=== PATIENT | female | born 1980 | race Two or more races ===

== ENCOUNTER 2025-03-06 08:43 | Inpatient (IN) | payer MEDICAID, SELFPAY ==
[2025-03-06] VITALS (12 sets, daily range): BP systolic 100–151; BP diastolic 48–78; PULSE 104–130; RESP 18–24; TEMP 36.8–39.4; O2SAT 95–100; BMI 44.6; BMI 46.7
--- NOTE | 2025-03-06 08:53 | XR_ITS ---
Examination: PA lateral chest 2 views TECHNIQUE: Upright PA lateral chest 2 views Date and time: March 06, 2025 1007 hours Comparison January 28, 2016 INDICATIONS: Coughing fever nausea and headaches body chills 2 days FINDINGS: Suspicious for early right base pneumonia Mild prominence left ventricle Mild vascular congestion. Osseous structures are intact IMPRESSION: Suspicious for early right base pneumonia
--- NOTE | 2025-03-06 09:20 | PD.EDFEVER ---
ED Fever RME/HPI General Chief Complaint: Fever Stated Complaint: FEVER, NAUSEA, HEADACHE, BODY CHILLS Time Seen by Provider: 03/06/25 08:57 Source: patient Arrival date/time: 03/06/25 08:43 44-year-old female with no known medical history presents to the emergency room with a chief complaint of a fever, nausea, headache, body aches x 3 days Mode of arrival: ambulatory Limitations: no limitations Related Data Previous Rx's ?Medication ?Instructions ?Recorded ibuprofen 600 mg tablet 600 mg PO Q8HR PRN PAIN #30 tabs 02/05/16 Allergies Allergy/AdvReac Type Severity Reaction Status Date / Time NKA* Allergy Uncoded 03/06/25 08:48 Review of Systems Review of Systems Systems Reviewed: All systems reviewed, normal except as documented Constitutional Constitutional: Reports system reviewed and no additional complaints, except as documented, Reports body ache(s), Reports chills, Denies fatigue, Reports fever(s), Reports headache(s) and Reports weakness Eyes Eyes: Reports system reviewed and no additional complaints, except as documented, Denies blurry vision and Denies change in vision ENT Ears, Nose, Mouth, and Throat: Reports system reviewed and no additional complaints, except as documented, Denies otalgia, Reports headache(s), Denies nasal congestion, Denies throat swelling and Denies vertigo Cardiovascular Cardiovascular: Reports system reviewed and no additional complaints, except as documented, Denies chest pain, Denies dyspnea and Denies dyspnea on exertion Respiratory Respiratory: Reports system reviewed and no additional complaints, except as documented, Denies chest congestion, Denies cough, Denies dyspnea, Denies dyspnea on exertion and Denies wheezing Gastrointestinal Gastrointestinal: Reports system reviewed and no additional complaints, except as documented, Denies abdominal pain, Denies cramping, Denies nausea and Denies vomiting Genitourinary Genitourinary: Reports system reviewed and no additional complaints, except as documented Musculoskeletal Musculoskeletal: Reports system reviewed and no additional complaints, except as documented and Denies back pain Integumentary/Breasts Skin/Breast: Reports system reviewed and no additional complaints, except as documented and Denies wounds Neurologic Neurologic: Reports system reviewed and no additional complaints, except as documented, Denies confusion, Reports headache(s), Denies lack of coordination, Denies vertigo and Reports weakness Psychiatric Psychiatric: Reports system reviewed and no additional complaints, except as documented, Denies anxiety, Denies confusion, Denies depression, Denies paranoia, Denies suicidal ideation and Denies tactile hallucinations Endocrine Endocrine: Reports system reviewed and no additional complaints, except as documented and Denies fatigue Hematologic/Lymphatic Hematologic/Lymphatic: Reports system reviewed and no additional complaints, except as documented and Denies lymphadenopathy Allergic/Immunologic Allergic/Immunologic: Reports system reviewed and no additional complaints, except as documented, Denies throat swelling, Denies urticaria and Denies wheezing Past Medical History Past Medical History CARDIAC: Negative Congestive Heart Failure RESPIRATORY: Negative Chronic Obstructive Pulmonary Disease (COPD) GENITOURINARY: Negative Renal Disease MUSCULOSKELETAL: Positive Arthritis ENDOCRINE: Negative Diabetes Mellitus Type 1 or Diabetes Mellitus Type 2 Social History SMOKING STATUS: Never smoker Physical Exam General Limitations: no limitations General appearance: alert and in no apparent distress Head Head exam: atraumatic Eye Eye exam: Present normal appearance, PERRL and EOMI ENT ENT exam: Present normal exam, normal oropharynx and mucous membranes moist Neck Neck exam: Present normal inspection, full ROM and trachea midline Chest Chest inspection: Present normal inspection and symmetric chest wall rise Respiratory Respiratory exam: Present normal lung sounds bilaterally; Absent respiratory distress, wheezes, stridor, accessory muscle use or prolonged expiratory phase Cardiovascular Cardiovascular exam: Present regular rate, normal rhythm, tachycardia, normal heart sounds, +S1 and +S2 Abdominal Exam Abdominal exam: Present soft and normal bowel sounds; Absent distention, tenderness or guarding Extremities Exam Extremities exam: Present normal inspection and full ROM Back Exam Back exam: Present normal inspection and full ROM Neurological Exam Neurological exam: Present alert, oriented X3 and CN II-XII intact Psychiatric Psychiatric exam: Present normal affect and normal mood Skin Skin exam: Present warm, dry, intact and normal color ED Exam General Limitations: Present no limitations General appearance: Present alert and in no apparent distress Head Head exam: Present atraumatic Eye Eye exam: Present normal appearance, PERRL and EOMI ENT ENT exam: Present normal exam, normal oropharynx and mucous membranes moist Neck Neck exam: Present normal inspection, full ROM and trachea midline Chest Chest inspection: Present normal inspection and symmetric chest wall rise Respiratory Respiratory exam: Present normal lung sounds bilaterally; Absent respiratory distress, wheezes, stridor, accessory muscle use or prolonged expiratory phase Cardiovascular Cardiovascular exam: Present regular rate, normal rhythm, tachycardia, normal heart sounds, +S1 and +S2 Abdominal Exam Abdominal exam: Present soft and normal bowel sounds; Absent distention, tenderness or guarding Extremities Exam Extremities exam: Present normal inspection and full ROM Back Exam Back exam: Present normal inspection and full ROM Neurological Exam Neurological exam: Present alert, oriented X3 and CN II-XII intact Psychiatric Psychiatric exam: Present normal affect and normal mood Skin Skin exam: Present warm, dry, intact and normal color Course Orders Category Date Time Status Bedside COVID-19 Antigen Test NOW Care 03/06/25 08:53 Active Bedside Influenza A&B Antigen Test NOW Care 03/06/25 08:53 Active XR chest 2V Stat Exams 03/06/25 08:53 Taken Blood Culture (Lab) Stat Lab 03/06/25 08:58 Ordered CBC Stat Lab 03/06/25 08:58 Ordered CMP [Comprehensive Metabolic Panel] Stat Lab 03/06/25 08:58 Ordered Lactate (Lactic Acid) Stat Lab 03/06/25 08:58 Ordered Procalcitonin Stat Lab 03/06/25 08:58 Ordered UA [Urinalysis] Stat Lab 03/06/25 08:58 Ordered Urine Culture Stat Lab 03/06/25 08:58 Ordered Acetaminophen Tab [Tylenol ES Tab] Med 03/06/25 08:58 Discontinued 1,000 mg PO X1 ONE Ibuprofen Tab [Motrin Tab] Med 03/06/25 08:58 Discontinued 600 mg PO X1 ONE Vital Signs Vital signs: Vital Signs Temperature 103.0 F H 03/06/25 08:55 Pulse Rate 130 H 03/06/25 08:55 Respiratory Rate 24 H 03/06/25 08:55 Blood Pressure 136/73 H 03/06/25 08:55 Pulse Oximetry (%) 96 03/06/25 08:55 Oxygen Delivery Method Room Air 03/06/25 08:55 Fever MDM Narrative MDM Narrative:: 44-year-old female with no known medical history presents to the emergency room with a chief complaint of a fever, nausea, headache, body aches x 3 days Patient data External records reviewed:: [facility] previous records Clinical information provided by:: patient Social determinants that could affect healthcare access:: none Patient has the following chronic illnesses:: No chronic illness How is presenting disease/condition affected by chronic disease/condition?: no chronic disease Evaluation data The following diagnostics were reviewed and interpreted by me:: lab results and radiology exam(s) Lab and/or radiology exams considered but not ordered:: Labs and radiology exams considered in order Interpretation Summary: Chest x-ray- Medications / Prescriptions Medications or Prescriptions considered but not ordered:: Medication given Medication administrations:: Medication Administration History Discontinued Medications Acetaminophen (Acetaminophen 500 Mg Tablet) 1,000 mg PO X1 ONE Stop: 03/06/25 08:59 Ibuprofen (Ibuprofen Tab 600 Mg Tablet) 600 mg PO X1 ONE Stop: 03/06/25 08:59 Medication given Consultations Consultation(s) initiated? (list below): No Diagnosis Fever Differential Diagnosis: cellulitis, fever of unknown origin, community acquired pneumonia, viral infection and influenza Admission Indicated Admission indicated?: not indicated Admission Request Was there a request for admission?: No Disposition Plan Disposition Plan: Discharge Discharge Attestation Discharge Attestation: The patient and all family members were given an opportunity to ask questions and understood the discharge instructions. Discharge instructions specifically effects, indications for sooner follow up or return to the emergency department, and the expected course of current diagnosis. Patient condition: Stable Discharge Plan Prescriptions/Referrals Prescriptions/Med Rec: No Action ibuprofen 600 MG tablet 600 mg PO Q8HR PRN (Reason: PAIN) Qty: 30 0RF Referrals: Harry Gonzalez MD [Primary Care Provider] - In 1 week Patient/Caregiver Discharge Instructions Print Language: Greenlandic
[2025-03-06] MEDS: IBUPROFEN TAB 600 MG TABLET PO (09:27)
[2025-03-06] MEDS: ACETAMINOPHEN 500 MG TABLET 1000 MG PO ×2 (09:27→15:12)
[2025-03-06 10:02] LABS: Lactate (Lactic Acid) 2.5 mMol/L (0.4-2.0)
[2025-03-06 10:04] LABS: Basophils # (Auto) 0.1 Thou/mm3 (0.0-0.2); Basophils % (Auto) 0 % (0-2.5); Eosinophils % (Auto) 0 % (0-10); Hematocrit 29.6 % (36.0-46.0); Immature Granulocytes % (Auto) 1 % (0-0); Immature Granulocytes Auto 0.09 Thou/mm3 (0.00-0.00); Lymphocytes # (Auto) 2.7 Thou/mm3 (1.0-4.8); Lymphocytes % (Auto) 14 % (10-50); Mean Corpuscular HGB Conc 27.7 g/dl (31.0-37.0); Mean Corpuscular Hemoglobin 16.7 pg (25.0-35.0); Mean Corpuscular Volume 60 fL (80-100); Monocytes # (Auto) 0.8 Thou/mm3 (0.0-0.8); Monocytes % (Auto) 4 % (0-12); Neutrophils # (Auto) 16.1 Thou/mm3 (1.8-7.7); Neutrophils % (Auto) 81 % (37-80); Nucleated Red Blood Cell # 0.05 Thou/mm3 (0.00-0.00); Nucleated Red Blood Cell % 0 /100 WBC (0); Platelet Count 412 Thou/mm3 (140-440); RDW Standard Deviation 41.3 fL (36.4-46.3); White Blood Count 19.8 Thou/mm3 (3.6-11.0)
[2025-03-06 10:15] LABS: COVID-19 Antigen (In-House) Negative (Negative)
--- NOTE | 2025-03-06 10:15 | PD.EDRME ---
Rapid Medical Screening Exam RME Arrival date/time: 03/06/25 08:43 44-year-old female with no known medical history presents to the emergency room with a chief complaint of a fever, nausea, headache, body aches x 3 days I have greeted and performed a focused initial assessment of this patient. A comprehensive ED assessment and evaluation of the patient, analysis of all test results, and completion of the medical decision making process will be conducted by additional ED providers. Chief Complaint: Fever Time Seen by Provider: 03/06/25 08:57 Vital signs: Vital Signs Temperature 103.0 F H 03/06/25 08:55 Pulse Rate 130 H 03/06/25 08:55 Respiratory Rate 24 H 03/06/25 08:55 Blood Pressure 136/73 H 03/06/25 08:55 Pulse Oximetry (%) 96 03/06/25 08:55 Oxygen Delivery Method Room Air 03/06/25 08:55 Vital signs reviewed by provider: Yes
[2025-03-06 10:19] LABS: Hemoglobin 8.2 g/dL (12.0-16.0)
[2025-03-06 10:35] LABS: Alanine Aminotransferase 25 U/L (10-49); Albumin, Serum 4.3 gm/dL (3.5-5.0); Albumin/Globulin Ratio 1.4 (1.2-2.2); Alkaline Phosphatase 95 U/L (46-116); Anion Gap 13 (7-16); Aspartate Amino Transferase 29 U/L (0-34); BUN/Creatinine Ratio 17 Ratio (12-20); Bilirubin,Total 1.8 mg/dL (0.3-1.2); Blood Urea Nitrogen 10 mg/dL (9-23); Calcium 8.5 mg/dL (8.3-10.6); Calcium (Corrected) 8.5 mg/dL (8.5-10.1); Carbon Dioxide 23.3 mMol/L (20.0-31.0); Chloride 100 mMol/L (98-107); Creatinine (Component) 0.6 mg/dL (0.6-1.3); Globulin 3.1 gm/dL (2.3-3.5); Glucose 167 mg/dL (74-106); Osmolality,Calculated 274 (275-295); Potassium 3.7 mMol/L (3.4-5.1); Procalcitonin 0.35 ng/ml (0.0-0.49); Sodium 136 mMol/L (136-145); Total Protein 7.4 gm/dL (5.7-8.2); eGFR > 60 See Note
[2025-03-06] MEDS: SODIUM CHLORIDE 0.9% 1000 ML 1,000 ML 999 ML IV ×2 (11:28→14:09)
--- NOTE | 2025-03-06 11:29 | XR_ITS ---
Examination: Abdomen sonogram, Limited Date and time of exam: March 06, 2025 1113 hours INDICATIONS: Right upper abdominal pain nausea vomiting beginning 2 days ago Technique: Real-time villalta scale transabdominal sonographic images of the upper abdomen obtained. Findings: Absent gallbladder Normal common bile duct 0.5 cm Pancreatic head 2.4 cm Liver 21.6 cm fatty infiltration Normal hepatopedal portal venous flow Patent IVC IMPRESSION: Absent gallbladder Normal common bile duct Hepatomegaly with fatty liver
--- NOTE | 2025-03-06 11:32 | EKG_ITS ---
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
--- NOTE | 2025-03-06 11:33 | EDNOTE_ITS ---
<Statement entered by Urmila Crow MD - 03/07/25 06:13> I, Urmila Crow MD, have reviewed the history, exam, and assessment of the patient. I have evaluated the patient independently and agree with the plan of care documented by [ ]. All diagnostic studies were reviewed and discussed. I confirm the diagnosis as documented by the Resident. I was present during the Medical Decision Making for this patient. The patient's plan of care was created between myself and the Resident and consistent with our discussion of the patient's case. ED Fever RME/HPI General Chief Complaint: Fever Stated Complaint: FEVER, NAUSEA, HEADACHE, BODY CHILLS Time Seen by Provider: 03/06/25 08:57 Arrival date/time: 03/06/25 08:43 RME / HPI RME / HPI Narrative: 03/06/25 08:43 The patient is a 44-year-old female with significant past medical history of anemia, with unknown etiology presented to ED with chief complaint of fever, nausea and vomiting that has been worsening for about 3 days. The patient reported that her temperature was up to 102, had 2 episodes of vomiting without any blood, and has been having urinary symptoms with burning micturition, dysuria and frequency. She also reported associated mild SOB, more on exertion. She denied any headache, sore throat, chest pain, or leg swelling. Related Data Previous Rx's ?Medication ?Instructions ?Recorded ibuprofen 600 mg tablet 600 mg PO Q8HR PRN PAIN #30 tabs 02/05/16 Allergies Allergy/AdvReac Type Severity Reaction Status Date / Time NKA* Allergy Uncoded 03/06/25 08:48 Review of Systems Review of Systems Systems Reviewed: All systems reviewed, normal except as documented (Above) Past Medical History Social History SMOKING STATUS: Never smoker Physical Exam Narrative Physical exam: General: Morbidly obese female, no acute distress, Alert and Oriented x 3 HEENT: Mildly dry mucous membranes, oropharynx clear Neck: Supple, No masses, No JVD CVS: Tachycardic, No murmurs, rubs or gallops Lungs: Clear to auscultation with no accessory use, no wheeze no rhonchi Abd: Soft, tenderness over right upper quadrant, but diffuse tenderness also present, +BS, no organomegaly Ext: No edema, warm and well perfused Skin: No rash Psych: Appropriate mood and affect Course Quality Measures none Orders Category Date Time Status Bedside COVID-19 Antigen Test NOW Care 03/06/25 08:53 Active Bedside Influenza A&B Antigen Test NOW Care 03/06/25 08:53 Completed EKG (ED ONLY) *Do not use* NOW Care 03/06/25 11:[address] abdomen pelvis wo con Stat Exams 03/06/25 13:06 Completed EKG (ED Only) Stat Exams 03/06/25 11:32 Draft US gall bladder Stat Exams 03/06/25 11:29 Completed XR chest 2V Stat Exams 03/06/25 08:53 Completed Blood Culture (Lab) Stat Lab 03/06/25 09:55 Received CBC Stat Lab 03/06/25 09:55 Completed CMP [Comprehensive Metabolic Panel] Stat Lab 03/06/25 09:55 Completed COVID-19 Antigen (In-House) Routine Lab 03/06/25 12:00 Completed COVID-19 Antigen (In-House) Stat Lab 03/06/25 09:51 Completed HCG,Qualitative Serum Stat Lab 03/06/25 13:39 Completed Lactate (Lactic Acid) Stat Lab 03/06/25 09:55 Completed Lactic Acid, 3 HR Stat Lab 03/06/25 13:39 Completed Procalcitonin Stat Lab 03/06/25 09:55 Completed UA [Urinalysis] Stat Lab 03/06/25 15:00 Completed Urine Culture Stat Lab 03/06/25 15:00 Received Acetaminophen Tab [Tylenol ES Tab] Med 03/06/25 08:58 Discontinued 1,000 mg PO X1 ONE Acetaminophen Tab [Tylenol ES Tab] Med 03/06/25 15:02 Discontinued 1,000 mg PO X1 ONE Azithromycin Inj [Zithromax Inj] 500 mg Med 03/06/25 11:31 Discontinued Sodium Chloride 0.9% 250 ml [Ns] 250 ml IV X1 Ibuprofen Tab [Motrin Tab] Med 03/06/25 08:58 Discontinued 600 mg PO X1 ONE Piper/Tazo Inj [Zosyn Inj] 4.5 gm Med 03/06/25 11:30 Discontinued Sodium Chloride 0.9% (Pop) [NS 0.9% mini bag] 100 ml IV X1 Sodium Chloride 0.9% 1000 ml [Ns] 1,000 ml Med 03/06/25 10:15 Discontinued IV 999 mls/hr Sodium Chloride 0.9% 1000 ml [Ns] 1,000 ml Med 03/06/25 13:35 Discontinued IV 999 mls/hr cefTRIAXone/D5w 1gm IV premix [Rocephin/D5w 1gm IV Med 03/06/25 10:15 Discontinued premix] 1 gm in 50 ml IV X1 Vital Signs Vital signs: Vital Signs Temperature 103.0 F H 03/06/25 08:55 Pulse Rate 130 H 03/06/25 08:55 Respiratory Rate 24 H 03/06/25 08:55 Blood Pressure 136/73 H 03/06/25 08:55 Pulse Oximetry (%) 96 03/06/25 08:55 Oxygen Delivery Method Room Air 03/06/25 08:55 Fever MDM Narrative MDM Narrative:: The patient is a 44-year-old female with significant past medical history of anemia, with unknown etiology presented to ED with chief complaint of fever, nausea and vomiting that has been worsening for about 3 days. The patient reported that her temperature was up to 102, had 2 episodes of vomiting without any blood, and has been having urinary symptoms with burning micturition, dysuria and frequency. She also reported associated mild SOB, more on exertion. She denied any headache, sore throat, chest pain, or leg swelling. Initial vitals were blood pressure 136/73, pulse 140, RR 24, temperature 103.0, saturating 96% on room air. Labs revealed white count 19.8, hemoglobin 8.2, MCV 60, CMP revealed blood sugar 167, lactic acid 2.5, total bilirubin 1.8, Pro-Jordon 0.35, beta-hCG negative, COVID-19 negative, EKG revealed sinus tachycardia. Gallbladder ultrasound revealed Absent gallbladder, normal common bile duct, hepatomegaly with fatty liver. CXR was suspicious for early right base p neumonia. The patient was given Zosyn 4.5 g and azithromycin 500 Mg IV x 1, bolus normal saline 2 L IV x 1, Tylenol 1 g p.o. x 2. The patient was planned to admit to the floors. Patient data External records reviewed:: [facility] previous records Clinical information provided by:: patient Social determinants that could affect healthcare access:: none Patient has the following chronic illnesses:: See above How is presenting disease/condition affected by chronic disease/condition?: exacerbated by Evaluation data The following diagnostics were reviewed and interpreted by me:: lab results, radiology exam(s) and EKG tracing(s) Lab and/or radiology exams considered but not ordered:: None Interpretation Summary: See above Medications / Prescriptions Medications or Prescriptions considered but not ordered:: None Medication administrations:: Medication Administration History Discontinued Medications Acetaminophen (Acetaminophen 500 Mg Tablet) 1,000 mg PO X1 ONE Stop: 03/06/25 08:59 Last Admin: 03/06/25 09:27 Dose: 1,000 mg Documented By: VALERIE Acetaminophen (Acetaminophen 500 Mg Tablet) 1,000 mg PO X1 ONE Stop: 03/06/25 15:03 Last Admin: 03/06/25 15:12 Dose: 1,000 mg Documented By: KHAI Sodium Chloride (Ns) 1,000 mls @ 999 mls/hr IV .Q1H1M ONE Stop: 03/06/25 11:15 Last Infusion: 03/06/25 13:36 Dose: Infused Documented By: Admin: 03/06/25 11:28 Dose: 999 mls/hr Documented By: KHAI Ceftriaxone Sodium/Dextrose (Rocephin/D5w 1gm Iv Premix) 1 gm in 50 mls @ 100 mls/hr IV X1 ONE Stop: 03/06/25 10:44 Last Admin: 03/06/25 11:33 Dose: Not Given Documented By: KHAI Non-Admin Reason: Cancelled by Provider Piperacillin Sod/Tazobactam (Sod 4.5 gm/ Sodium Chloride) 100 mls @ 200 mls/hr IV X1 ONE Stop: 03/06/25 11:59 Last Infusion: 03/06/25 13:35 Dose: Infused Documented By: Admin: 03/06/25 11:41 Dose: 200 mls/hr Documented By: KHAI Azithromycin 500 mg/ Sodium (Chloride) 250 mls @ 250 mls/hr IV X1 ONE Stop: 03/06/25 12:30 Last Infusion: 03/06/25 15:20 Dose: Infused Documented By: Admin: 03/06/25 14:09 Dose: 250 mls/hr Documented By: JEANETH Sodium Chloride (Ns) 1,000 mls @ 999 mls/hr IV .Q1H1M ONE Stop: 03/06/25 14:35 Last Infusion: 03/06/25 15:21 Dose: Infused Documented By: Admin: 03/06/25 14:09 Dose: 999 mls/hr Documented By: DB Ibuprofen (Ibuprofen Tab 600 Mg Tablet) 600 mg PO X1 ONE Stop: 03/06/25 08:59 Last Admin: 03/06/25 09:27 Dose: 600 mg Documented By: VALERIE See above Consultations Consultation(s) initiated? (list below): Yes Consultation #1 (Physician, Specialty, Details): Hospitalist Dr. Dilip DO Diagnosis Fever Differential Diagnosis: community acquired pneumonia and other (Sepsis 2/2 UTI vs Pneumonia) Most likely diagnosis given after review of the tests above:: Sepsis 2/2 Pneumonia vs UTI Admission Indicated Admission indicated?: indicated Admission Request Was there a request for admission?: Yes Admission Attestation Admission request attestation: Discussed case with Dr. Dilip DO from Hospitalist service regarding admission. Discussed patients ED course, exam findings, labs, and radiology results. The Hospitalist agrees to accept the patient for admission. Disposition Plan Disposition Plan: Admit Discharge Plan Plan Patient Disposition: Admit Acute Care w/in Hospital Prescriptions/Referrals Prescriptions/Med Rec: No Action ibuprofen 600 MG tablet 600 mg PO Q8HR PRN (Reason: PAIN) Qty: 30 0RF Referrals: Harry Gonzalez MD [Primary Care Provider] - In 1 week Problem List Clinical Impression: Sepsis, Community acquired pneumonia, UTI (urinary tract infection) Patient/Caregiver Discharge Instructions Print Language: Yi Stand Alone Forms: Lindy Award Info., Patient Portal Info Letter
[2025-03-06] MEDS: PIPER/TAZO INJ 4.5 GM in SODIUM CHLORIDE 0.9% (POP) 100 ML IV (11:41)
[2025-03-06 12:27] LABS: COVID-19 Antigen (In-House) Negative (Negative)
[2025-03-06 12:59] LABS: Reflex Lactate? Y
--- NOTE | 2025-03-06 13:06 | XR_ITS ---
Examination: CT abdomen and pelvis without contrast. Coronal 3-D reconstructions. Sagittal 2-D reconstructions. Date and time of exam:March 06, 2025 1555 hours INDICATIONS: Abdominal pain and tenderness CTDI: vol (mGy): 16.6 DLP: (mGycm): 991 Technique: Axial images of the abdomen have been obtained, 3 mm slice thickness Intravenous contrast material has not been administered. Low dose protocols were performed. One or more of the following dose reduction techniques were used; automated exposure control, adjustment of the mA and/or KV according to patient size, use of iterative reconstruction technique. Findings: Hepatomegaly 20 cm with diffuse fatty infiltration throughout the liver The liver is irregular in contour Splenomegaly AP dimension 15 cm Absent gallbladder Fatty replacement pancreas 3 mm lower pole left renal calculus 3 mm lower pole right renal calculus, no hydronephrosis or ureteral calculi Normal appendix No bowel obstruction No diverticulitis Anteverted uterus Urinary bladder intact Mild disc narrowing L4-L5, L5-S1 IMPRESSION: Significant hepatomegaly splenomegaly Fatty infiltration throughout the liver. Primary hepatocellular disease versus cirrhosis. Bilateral nonobstructing renal calculi Normal-appearing appendix No bowel obstruction or diverticulitis
[2025-03-06 13:50] LABS: Lactic Acid, 3 HR 1.7 mMol/L (0.4-2.0)
[2025-03-06] MEDS: AZITHROMYCIN INJ 500 MG in SODIUM CHLORIDE 0.9% 250 ML 250 ML 250 MG IV (14:09)
[2025-03-06 14:48] LABS: HCG,Qualitative Serum Negative
[2025-03-06 15:29] LABS: Collection Type, Urine Clean Catch
[2025-03-06 16:04] LABS: Bacteria,Urine Rare; Bilirubin,Urine Negative (Negative); Blood,Urine Negative (Negative); Clarity,Urine Clear (Clear/Hazy); Color,Urine Yellow (Lt Yel-Yel); Glucose, Urine Negative (Negative); Ketones,Urine 1+ (Negative); Leukocyte Esterase,Urine Positive (Negative); Nitrite,Urine Negative (Negative); Protein,Urine Trace (Neg - Trace); RBC,Urine 1 /hpf (0-3); Specific Gravity,Urine 1.026 (1.001-1.035); Squamous Epithelial Cell,Urine 10 /hpf (0-5); Urobilinogen,Urine Negative mg/dL (0.0-1.0); WBC,Urine 6 /hpf (0-5)
[2025-03-06] MEDS: RINGERS LACTATED 1000 ML 1,000 ML 999 ML IV (17:42)
--- NOTE | 2025-03-06 18:10 | ESHP_ITS ---
<Statement entered by Joby Ware MD - 03/07/25 09:47> Patient examined and case discussed with the team including attending physician. Note reviewed, I agree with the care plan as documented. Please refer to the note above for further details. - Joby Ware MD, PGY 2 Disclaimer: The document may contain phonetic/typographic errors due to voice recognition software. These errors are purely due to imperfections in the software program. Documentation for date of: 03/06/25 HPI History of Present Illness History of present illness: 44-year-old female with past medical history of anemia, cholecystectomy presenting to the ED on 03/06 with episode of vomiting and diarrhea. Patient states that she has been also having urinary symptoms on and off for about 1 month but she has not been seen by PCP. Patient states that she has burning sensation while urinating associated with fevers that have been on and off. Patient states no sick contacts, sexually active with her spouse without the use of protection, no recent travel and denies any tobacco, alcohol or illicit drug use. Patient denies any recent antibiotic use and denies any melena, hematochezia or hematemesis. She also denies having any changes to her diet or any current medical conditions being treated with prescription medication. Patient states that she did not see her PCP for symptoms because she believed her symptoms would improve; however, last night symptoms worsened and she developed weakness along with vomiting. Medical history: As stated above Surgical history: Cholecystectomy Allergies: NKDA Medications: Denies any prescription medication Family history: Denies any family history of hypertension or diabetes Social history: Patient lives at home with her and children. Works in the [employer]. Denies any alcohol, tobacco or illicit drug use ROS: All 12 systems distant patient denies unless otherwise stated in HPI In the ED, patient presented meeting SIRS criteria with tachycardia 130, respiratory rate of 24, febrile 103 ?F with mild hypertension 136/73 but satting 96 on room air. Pertinent lab findings include WBC of 19.8, hemoglobin 8.2 with MCV of 60, creatinine 0.6, BUN 10, T. bili 1.8, Pro-Jordon 0.35. Urinalysis shows +1 ketones, pyuria and rare bacteria. Chest x-ray shows suspicion for early right base pneumonia, gallbladder ultrasound shows hepatomegaly with fatty liver, EKG shows sinus tachycardia without any concerning ST changes and CTA abdomen pelvis shows hepatosplenomegaly, bilateral nonobstructing renal calculi. Patient will be admitted for observation for urinary tract infection and started on IV antibiotics. Exam Vital Signs Temp Pulse Resp BP Pulse Ox O2 Del Method 99.7 F 110 H 20 109/57 L 95 Room Air 03/06/25 17:48 03/06/25 16:49 03/06/25 16:49 03/06/25 16:49 03/06/25 16:49 03/06/25 16:49 Narrative Exam Physical Exam: GENERAL: Awake, answering questions appropriately in Latvian, appears stated age HEENT: NC/AT. Moist mucosa. PERRLA/EOMI. CARDIO: Heart RRR, no obvious murmurs, no JVD. PULM: No coughing or visible SOB. Lungs CTA B/L. GI: Abdomen soft, tender to palpation diffusely, nondistended, no guarding or rebound tenderness, +BS. SKIN/MSK/EXT: No wounds/discoloration/rashes/edema/amputations. +Pedal pulses present B/L. NEURO: Oriented x3, Moves extremities x4, no focal neurologic deficits noted Results: Labs 03/07/25 10:15 03/07/25 04:26 Labs: Short CBC 03/06/25 Range/Units 09:55 WBC 19.8 H (3.6-11.0) Thou/mm3 Hgb 8.2 L (12.0-16.0) g/dL Hct 29.6 L (36.0-46.0) % Plt Count 412 (140-440) Thou/mm3 BMP 03/06/25 09:55 Sodium 136 Potassium 3.7 Chloride 100 Carbon Dioxide 23.3 BUN 10 Creatinine 0.6 Glucose 167 H Calcium 8.5 Liver Function 03/06/25 Range/Units 09:55 Total Bilirubin 1.8 H (0.3-1.2) mg/dL AST 29 (0-34) U/L ALT 25 (10-49) U/L Alkaline Phosphatase 95 (46-116) U/L Albumin 4.3 (3.5-5.0) gm/dL Urine 03/06/25 Range/Units 15:00 Urine Color Yellow (Lt Yel-Yel) Urine Clarity Clear (Clear/Hazy) Urine pH 6.0 (5.0-7.0) Ur Specific [place] 1.026 (1.001-1.035) Urine Protein Trace (Neg - Trace) Urine Glucose (UA) Negative (Negative) Quality Measures Quality Measures none Medications Home Medications and Allergies Allergies Allergy/AdvReac Type Severity Reaction Status Date / Time No Known Allergies Allergy Unverified 03/06/25 18:19 Visit Medications Lactated Ringer's (Lactated Ringers) 1,000 mls @ 999 mls/hr IV .Q1H1M ONE Stop: 03/06/25 18:12 Last Admin: 03/06/25 17:42 Dose: 999 mls/hr Discontinued Medications Acetaminophen (Acetaminophen 500 Mg Tablet) 1,000 mg PO X1 ONE Stop: 03/06/25 08:59 Last Admin: 03/06/25 09:27 Dose: 1,000 mg Acetaminophen (Acetaminophen 500 Mg Tablet) 1,000 mg PO X1 ONE Stop: 03/06/25 15:03 Last Admin: 03/06/25 15:12 Dose: 1,000 mg Sodium Chloride (Ns) 1,000 mls @ 999 mls/hr IV .Q1H1M ONE Stop: 03/06/25 11:15 Last Infusion: 03/06/25 13:36 Dose: Infused Ceftriaxone Sodium/Dextrose (Rocephin/D5w 1gm Iv Premix) 1 gm in 50 mls @ 100 mls/hr IV X1 ONE Stop: 03/06/25 10:44 Last Admin: 03/06/25 11:33 Dose: Not Given Piperacillin Sod/Tazobactam (Sod 4.5 gm/ Sodium Chloride) 100 mls @ 200 mls/hr IV X1 ONE Stop: 03/06/25 11:59 Last Infusion: 03/06/25 13:35 Dose: Infused Azithromycin 500 mg/ Sodium (Chloride) 250 mls @ 250 mls/hr IV X1 ONE Stop: 03/06/25 12:30 Last Infusion: 03/06/25 15:20 Dose: Infused Sodium Chloride (Ns) 1,000 mls @ 999 mls/hr IV .Q1H1M ONE Stop: 03/06/25 14:35 Last Infusion: 03/06/25 15:21 Dose: Infused Ibuprofen (Ibuprofen Tab 600 Mg Tablet) 600 mg PO X1 ONE Stop: 03/06/25 08:59 Last Admin: 03/06/25 09:27 Dose: 600 mg Assessment & Plan Plan 44-year-old female with past medical history of anemia, cholecystectomy presenting to the ED on 03/06 with episode of vomiting and diarrhea will be admitted for observation for urinary tract infection and started on IV antibiotics. #Sepsis secondary to UTI #Pneumonia? #Leukocytosis #Diarrheal illness Patient presented to the ED with episodes of urinary symptoms, nausea/vomiting and diarrhea As per HPI above, patient has not been seen by a medical provider since urinary symptom onset about 1 month ago Patient experienced nausea/vomiting and diarrhea for 1 day but otherwise did not have those symptoms Denies using any antibiotics recently, sick contacts, sexual activity only with spouse without protection, no melena/hematochezia/hematemesis SIRS criteria with tachycardia 130, respiratory rate of 24, febrile 103 ?F with mild hypertension 136/73 but satting 96 on room air. Has elevated Tbili - end organ dysfunction Pertinent lab findings include WBC of 19.8, hemoglobin 8.2 with MCV of 60, creatinine 0.6, BUN 10, T. bili 1.8, Pro-Jordon 0.35. Urinalysis shows +1 ketones, pyuria and rare bacteria. Chest x-ray shows suspicion for early right base pneumonia In the ED given, IVF and IV Zosyn x1 Azithro x1 and tylenol Plan: IV ceftriaxone 1g qday Follow-up on cultures HIV, Chlamydia/Don/Trich screen Tylenol for fever Will monitor for diarrhea while in the hospital; and consider stool studies if present #Metabolic associated steatotic liver disease #Morbidly Obese #Elevated T. bili Gallbladder ultrasound shows hepatomegaly with fatty liver EKG shows sinus tachycardia without any concerning ST changes CTA abdomen pelvis shows hepatosplenomegaly, bilateral nonobstructing renal calculi. Likely secondary to obesity #Microcytic anemia #Likely iron deficiency anemia History of iron deficiency anemia; as seen from past smear Plan: Follow-up on AM iron panel and reticulocyte count Will consider d/c with iron supplements #Hyperglycemia No A1c on file On admission glucose 167 Morbidly obese Plan: SSI Follow-up on morning A1c and lipid panel Hospital Management: Lines: PIV Diet: Carb consistent Bowel: Senna as needed GI prophylaxis: Not needed DVT prophylaxis: Heparin subcu Dispo: Observation for sepsis from UTI, on IV antibiotics Code: Full Patient seen and examined with attending Dr. Oconnor and senior resident Dr. Jeanie Cherry, PGY-1 Attending Provider Attestation/Addendum Lita, Marina Oconnor DO, attest that I was physically present for the melo portions of the service and evaluated the patient with the resident and I reviewed and discussed the case with the resident and agree with the resident's findings and plans of care as documented above Patient is a 44-year-old female with past medical history of anemia who presented to the ED with worsening abdominal pain, nausea and vomiting. Patient states that she has had generalized weakness for the past week. She endorses having sick contacts at home. She states her whole house hold has the flu. Patient endorses having productive sputum and cough. She states she does not take any medications at home. She also endorses having dysuria and chills. She denies any fevers otherwise. Upon presentation in the ED, patient was found to be febrile of 103 with leukocytosis to 19.8. She is also tachycardic. Sofa score of 1. Patient also states that she is having 3-4 episodes of diarrhea daily. She denies taking any antibiotics recently. She has only been taking [id number] medications such as NyQuil for her upper respiratory symptoms. Chest x-ray done in the ED shows suspicious for early right base pneumonia and CT abdomen pelvis shows significant hepatomegaly or splenomegaly, fatty infiltration throughout the liver, primary hepatocellular disease versus cirrhosis and bilateral nonobstructing renal calculi. Will admit patient to med/surg for further workup and medical management of UTI versus pneumonia. Will start patient on azithromycin and Rocephin. Will follow blood and urine cultures. Low suspicion for infectious cause of diarrhea. Patient denies any recent travel.
--- NOTE | 2025-03-06 19:30 | PC.NURSE ---
Pharmaceutical Sales Representative assumes care of patient at this time. Pt is A/O x 3 with c/o H.A., but does not rate pain level to group underwriter at this time. Bed in low position and locked with side rails up x 2. digital photographic printer in place with b/p and pulse ox. No breathing distress noted or reported
[2025-03-06 19:48] LABS: COVID-19 Antigen (In-House) Negative (Negative)
--- NOTE | 2025-03-06 20:30 | PC.NURSE ---
Report called to floor nurse, CHARLES Benavides at this time
[2025-03-06] MEDS: HEPARIN SOD INJ 5000 UNIT/ML VIAL SC (21:23)
[2025-03-06] MEDS: ACETAMINOPHEN 325 MG TABLET 650 MG PO (21:26)
--- NOTE | 2025-03-06 22:47 | PC.NURSE ---
called Dr. Bryant to clarify patient's orders. Per patient no hx of diabetes, but has no A1c on file, patient's glucose on admission was 167, recent finger stick glucose was 135. Patient has orders for AC and HS blood glucose checks with coverage. There will be A1c blood draw in AM, pr to keep current order of [facility] blood glucose checks and coverage per protocol.
--- NOTE | 2025-03-06 22:59 | PC.NURSE ---
called Dr. Bryant regarding patient's oral temperature, from 102.3 to 100.5 in about an hour after cooling measure implemented and tylenol was given, no new orders received.
[2025-03-07] VITALS (9 sets, daily range): BP systolic 129–146; BP diastolic 67–83; PULSE 78–111; RESP 18–20; TEMP 37.3–38.6; O2SAT 91–100; BMI 46.8
[2025-03-07] MEDS: ACETAMINOPHEN 325 MG TABLET 650 MG PO ×2 (03:50→13:17)
[2025-03-07 05:03] LABS: HIV (1&2) Antibody Rapid Non-Reactive
--- NOTE | 2025-03-07 05:48 | PC.NURSE ---
called Dr. Bryant regarding patient having a fever of 101.4, an hour after given tylenol, patient's temp 99.1. no new orders received.
[2025-03-07 06:15] LABS: Basophils % (Auto) 0 % (0-2.5); Eosinophils % (Auto) 0 % (0-10); Hematocrit 26.9 % (36.0-46.0); Immature Granulocytes % (Auto) 1 % (0-0); Immature Granulocytes Auto 0.08 Thou/mm3 (0.00-0.00); Immature Reticulocyte Fraction 23.9 % (3.0-15.9); Lymphocytes # (Auto) 1.9 Thou/mm3 (1.0-4.8); Lymphocytes % (Auto) 12 % (10-50); Mean Corpuscular HGB Conc 27.5 g/dl (31.0-37.0); Mean Corpuscular Hemoglobin 16.8 pg (25.0-35.0); Mean Corpuscular Volume 61 fL (80-100); Monocytes # (Auto) 0.8 Thou/mm3 (0.0-0.8); Monocytes % (Auto) 5 % (0-12); Neutrophils # (Auto) 13.6 Thou/mm3 (1.8-7.7); Neutrophils % (Auto) 83 % (37-80); Nucleated Red Blood Cell # 0.03 Thou/mm3 (0.00-0.00); Nucleated Red Blood Cell % 0 /100 WBC (0); Platelet Count 329 Thou/mm3 (140-440); RDW Standard Deviation 42.5 fL (36.4-46.3); Red Blood Count 4.41 Miln/mm3 (4.00-5.20); Reticulocyte % (Auto) 1.6 % (0.5-1.5); Reticulocyte Absolute Auto 68.4 Biln/L (25.0-75.0); Reticulocyte Hgb Content 16.4 pg (28.0-35.0); White Blood Count 16.4 Thou/mm3 (3.6-11.0)
[2025-03-07 06:17] LABS: Alanine Aminotransferase 32 U/L (10-49); Albumin, Serum 3.9 gm/dL (3.5-5.0); Albumin/Globulin Ratio 1.4 (1.2-2.2); Alkaline Phosphatase 76 U/L (46-116); Anion Gap 13 (7-16); Aspartate Amino Transferase 42 U/L (0-34); BUN/Creatinine Ratio 12 Ratio (12-20); Bilirubin,Total 2.1 mg/dL (0.3-1.2); Blood Urea Nitrogen 6 mg/dL (9-23); Calcium 7.8 mg/dL (8.3-10.6); Calcium (Corrected) 7.9 mg/dL (8.5-10.1); Carbon Dioxide 22.1 mMol/L (20.0-31.0); Cardiac Risk Estimate 2.5 RATIO (3.7-5.6); Chloride 101 mMol/L (98-107); Cholesterol 96 mg/dL (132-200); Creatinine (Component) 0.5 mg/dL (0.6-1.3); Estimated Creatinine Clearance 191.1 mL/min (>60); Globulin 2.8 gm/dL (2.3-3.5); Glucose 132 mg/dL (74-106); HDL Cholesterol 39 mg/dL (40-60); Hemoglobin 7.4 g/dL (12.0-16.0); LDL Cholesterol,Calculated 37 mg/dL (0-130); Magnesium 1.7 mg/dL (1.6-2.6); Osmolality,Calculated 271 (275-295); Phosphorous 2.1 mg/dL (2.4-5.1); Potassium 3.3 mMol/L (3.4-5.1); Sodium 136 mMol/L (136-145); Total Protein 6.7 gm/dL (5.7-8.2); Triglycerides 98 mg/dL (30-150); eGFR > 60 See Note
[2025-03-07 06:23] LABS: Ferritin 32 ng/mL (7.3-270.7); Iron 12 mcg/dL (50-170); Percent Iron Saturation 2 % (20-55); Total Iron Binding Capacity 408 mcg/dL (250-425); Unsaturated Iron Binding 396 (225-295)
[2025-03-07 06:49] LABS: Glucose Estimated Average 166 mg/dL (80-131); Hemoglobin A1C 7.4 % Hgb (4.8-6.0)
[2025-03-07] MEDS: Magnesium Sulfate 4 GM Ivpb 4 GM/50 ML BAG IV (08:48)
[2025-03-07] MEDS: CALCIUM CARBONATE 600 MG TABLET PO (08:48)
[2025-03-07] MEDS: AZITHROMYCIN INJ 250 MG in SODIUM CHLORIDE 0.9% 250 ML 250 ML IV (08:49)
[2025-03-07] MEDS: cefTRIAXone/D5w 1gm IV premix 1 GM/50 ML BAG IV (08:50)
[2025-03-07] MEDS: HEPARIN SOD INJ 5000 UNIT/ML VIAL SC ×2 (08:50→21:57)
[2025-03-07] MEDS: POTASSIUM PHOS 15 MMOL in SODIUM CHLORIDE 0.9% 250 ML 245 ML 62.5 MMOL IV (09:19)
[2025-03-07 10:36] LABS: Hematocrit 26.2 % (36.0-46.0)
[2025-03-07 10:47] LABS: Hemoglobin 7.5 g/dL (12.0-16.0)
[2025-03-07 12:05] LABS: Bilirubin,Direct 0.7 mg/dL (0.0-0.3); LDH (Lactate Dehydrogenase) 244 U/L (120-246)
[2025-03-07] MEDS: SODIUM CHLORIDE 0.9% 1000 ML 1,000 ML 999 ML IV (12:05)
--- NOTE | 2025-03-07 12:25 | PC.SS ---
Patient is alert/oriented. She is Finnish speaking only. SS used artificial flower maker line. Patient was admitted for nausea and body chills. Patient is independent with ADL's. Patient resides with her spouse and children. Patient is employed. Patient does not have any hx: mental illness or substance use. Patient verbalized she has no other health problems. Patient drives her own vehicle to appointments. PCP: Dr. Gonzalez @ [facility]. Last appt was 4 months ago. Alt medical decision maker is Nicanor, demarco. Discharge plan is to return home. Family to provide transportation upon discharge.
--- NOTE | 2025-03-07 13:11 | ESPR_ITS ---
<Statement entered by Joby Ware MD - 03/07/25 15:10> Patient examined and case discussed with the team including attending physician. Note reviewed, I agree with the care plan as documented. Ms Greco is a 44-year-old female admitted for acute urinary tract infection intially and started on IV antibiotics. Chest x-ray shows suspicion for early right base pneumonia. ED suspected possible aspiration and gave Zosyn 4.5 x1 and Azithro x1. Patient is now meeting sepsis, SIRS with end organ damage. WBC of 19.8 today. Blood cultures show no growth in 24 hours, HIV negative. Gallbladder ultrasound shows hepatomegaly with fatty liver. 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 Labs show elevated T Bili. CTA abdomen pelvis shows hepatosplenomegaly, bilateral nonobstructing renal calculi. Plan: Continue IV antibiotics. Follow-up on urine cultures. Chlamydia/Don/Trich screen pending. Please refer to the note below for further details. - Joby Ware MD, PGY 2 Disclaimer: The document may contain phonetic/typographic errors due to voice recognition software. These errors are purely due to imperfections in the software program. Documentation for date of: 03/07/25 Subjective Subjective Interval history: 03/07/2025: No acute overnight events to report. Patient seen and examined in hospital bed reporting persistent fatigue and apparently has had diarrhea while in the hospital, although 1 bowel movement charted. Patient's blood cultures show no growth for 24 hours, urine cultures are still pending. Patient's hemoglobin trended and stable but below likely secondary to iron deficiency anemia. Patient has an A1c of 7.4 and will require metformin prescription on discharge. Patient's T. bili elevated, likely secondary to metabolic associated steatotic liver disease but we will continue to monitor with morning labs. Patient will continue on IV antibiotics with expecting discharge within the next 24 to 48 hours. Exam Vital Signs Temp Pulse Resp BP Pulse Ox O2 Del Method 99.5 F 108 H 18 146/69 H 94 L Room Air 03/07/25 11:41 03/07/25 11:41 03/07/25 11:41 03/07/25 11:41 03/07/25 11:41 03/07/25 11:41 Narrative Exam Physical Exam: GENERAL: Awake, answering questions appropriately in Malian, appears stated age HEENT: NC/AT. Moist mucosa. PERRLA/EOMI. CARDIO: Heart RRR, no obvious murmurs, no JVD. PULM: No coughing or visible SOB. Lungs CTA B/L. GI: Abdomen soft, mildly tender to palpation diffusely, nondistended, no guarding or rebound tenderness, +BS. SKIN/MSK/EXT: No wounds/discoloration/rashes/edema/amputations. +Pedal pulses present B/L. NEURO: Oriented x3, Moves extremities x4, no focal neurologic deficits noted Objective Labs 03/07/25 10:15 03/07/25 04:26 Labs: Laboratory Results - last 24 hr 03/06/25 03/06/25 03/06/25 13:39 15:00 19:33 WBC RBC Hgb Hct MCV MCH MCHC RDW Std Deviation Plt Count Neut % (Auto) Lymph % (Auto) [place] % (Auto) Eos % (Auto) Baso % (Auto) Neut # (Auto) Lymph # (Auto) [place] # (Auto) Eos # (Auto) Baso # (Auto) Immature Gran # (Auto) Absolute Nucleated RBC Immature Gran % Nucleated RBC % Retic Count (auto) Absolute Retic Immature Retic Fraction Retic Hgb Content CHr Sodium Potassium Chloride Carbon Dioxide Anion Gap BUN Creatinine Estim Creat Clear Calc eGFR BUN/Creatinine Ratio Glucose Estimated Ave Glu mg/dL Hemoglobin A1c Calculated Osmolality Lactic Acid 1.7 Calcium Corrected Calcium Phosphorus Magnesium Iron TIBC Iron Saturation Unsat Iron Binding Ferritin Total Bilirubin Direct Bilirubin AST ALT Alkaline Phosphatase Lactate Dehydrogenase Total Protein Albumin Globulin Albumin/Globulin Ratio Triglycerides Cholesterol LDL Cholesterol, Calc HDL Cholesterol Cholesterol/HDL Ratio HCG, Qual Negative Ur Collection Type Clean Catch Urine Color Yellow Urine Clarity Clear Urine pH 6.0 Ur Specific [place] 1.026 Urine Protein Trace Urine Glucose (UA) Negative Urine Ketones 1+ A Urine Blood Negative Urine Nitrite Negative Urine Bilirubin Negative Urine Urobilinogen (Auto) Negative Ur Leukocyte Esterase Positive Urine RBC 1 Urine WBC 6 H Ur Squamous Epith Cells 10 H Urine Bacteria Rare HIV 1&2 Antibody Rapid Non-Reactive SARS-CoV-2 Ag (Rapid) Negative 03/07/25 03/07/25 04:26 10:15 WBC 16.4 H RBC 4.41 Hgb 7.4 L 7.5 L Hct 26.9 L 26.2 L MCV 61 L MCH 16.8 L MCHC 27.5 L RDW Std Deviation 42.5 Plt Count 329 D Neut % (Auto) 83 H Lymph % (Auto) 12 [place] % (Auto) 5 Eos % (Auto) 0 Baso % (Auto) 0 Neut # (Auto) 13.6 H Lymph # (Auto) 1.9 [place] # (Auto) 0.8 Eos # (Auto) 0.0 Baso # (Auto) 0.0 Immature Gran # (Auto) 0.08 H Absolute Nucleated RBC 0.03 H Immature Gran % 1 H Nucleated RBC % 0 Retic Count (auto) 1.6 H Absolute Retic 68.4 Immature Retic Fraction 23.9 H Retic Hgb Content CHr 16.4 L Sodium 136 Potassium 3.3 L Chloride 101 Carbon Dioxide 22.1 Anion Gap 13 BUN 6 L Creatinine 0.5 L Estim Creat Clear Calc 191.1 eGFR > 60 BUN/Creatinine Ratio [address] Glu mg/dL 166 H Hemoglobin A1c 7.4 H Calculated Osmolality 271 L Lactic Acid Calcium 7.8 L Corrected Calcium 7.9 L Phosphorus 2.1 L Magnesium 1.7 Iron 12 L TIBC 408 Iron Saturation 2 L Unsat Iron Binding 396 H Ferritin 32 Total Bilirubin 2.1 H Direct Bilirubin 0.7 H AST 42 H ALT 32 Alkaline Phosphatase 76 Lactate Dehydrogenase 244 Total Protein 6.7 Albumin 3.9 Globulin 2.8 Albumin/Globulin Ratio 1.4 Triglycerides 98 Cholesterol 96 L LDL Cholesterol, Calc 37 HDL Cholesterol 39 L Cholesterol/HDL Ratio 2.5 L HCG, Qual Ur Collection Type Urine Color Urine Clarity Urine pH Ur Specific [place] Urine Protein Urine Glucose (UA) Urine Ketones Urine Blood Urine Nitrite Urine Bilirubin Urine Urobilinogen (Auto) Ur Leukocyte Esterase Urine RBC Urine WBC Ur Squamous Epith Cells Urine Bacteria HIV 1&2 Antibody Rapid SARS-CoV-2 Ag (Rapid) Quality Measures Quality Measures none Assessment & Plan Assessment Current Active Medications: Generic Name Dose Route Start Last Admin Trade Name Freq PRN Reason Stop Dose Admin Acetaminophen 650 mg 03/06/25 18:11 03/07/25 03:50 Acetaminophen 325 Mg Tablet PO 04/05/25 18:10 650 mg Q6H PRN Administration Pain 1-3 and/or Fever >100.1 Dextrose 25 ml 03/06/25 18:11 Dextrose 50%-Water Inj 50 Ml Syringe IV 04/05/25 18:10 Q15MIN PRN BG 50-70 responsive npo pt Dextrose 50 ml 05/28/25 18:11 Dextrose 50%-Water Inj 50 Ml Syringe IV 04/05/25 18:10 Q15MIN PRN BG <50 OR BG <70 & pt unresponsive Glucagon 1 mg 03/06/25 18:11 Glucagon Inj 1 Mg Vial IM Q15MIN PRN BG <70, and no IV access Heparin Sodium (Porcine) 5,000 unit 03/06/25 21:00 03/07/25 08:50 Heparin Sod Inj 5000 Unit/Ml Vial SC 03/20/25 20:59 5,000 unit Q12HR LINDA Administration Ceftriaxone Sodium/Dextrose 1 gm in 50 mls @ 100 mls/hr 03/07/25 09:00 03/07/25 08:50 Rocephin/D5w 1gm Iv Premix IV 03/14/25 08:59 100 mls/hr QDAY LINDA Administration Azithromycin 250 mg/ Sodium 250 mls @ 250 mls/hr 03/07/25 09:00 03/07/25 08:49 Chloride IV 03/11/25 08:59 250 mls/hr QDAY LINDA Administration Insulin Human Lispro 0 unit 03/06/25 21:00 03/07/25 07:39 Insulin Lispro (Admelog) 1 Unit/0.01 Ml Unit SC 04/05/25 20:59 Not Given ACHS LINDA Protocol Ondansetron HCl 4 mg 03/06/25 18:11 Ondansetron Inj 2 Mg/Ml Inj 2 Ml IVP 04/05/25 18:10 Q6H PRN NAUSEA OR VOMITING Protocol Sennosides 1 tab 03/06/25 18:11 Senna Tablet PO 04/05/25 18:10 QDAY PRN constipation Protocol Plan 44-year-old female with past medical history of anemia, cholecystectomy presenting to the ED on 03/06 with episode of vomiting and diarrhea will be admitted for observation for urinary tract infection and started on IV antibiotics. #Sepsis secondary to UTI #Pneumonia? #Leukocytosis, downtrending #Diarrheal illness Patient presented to the ED with episodes of urinary symptoms, nausea/vomiting and diarrhea As per HPI above, patient has not been seen by a medical provider since urinary symptom onset about 1 month ago Patient experienced nausea/vomiting and diarrhea for 1 day but otherwise did not have those symptoms Denies using any antibiotics recently, sick contacts, sexual activity only with spouse without protection, no melena/hematochezia/hematemesis SIRS criteria with tachycardia 130, respiratory rate of 24, febrile 103 ?F with mild hypertension 136/73 but satting 96 on room air. Has elevated Tbili - end organ dysfunction Pertinent lab findings include WBC of 19.8, hemoglobin 8.2 with MCV of 60, creatinine 0.6, BUN 10, T. bili 1.8, Pro-Jordon 0.35. Urinalysis shows +1 ketones, pyuria and rare bacteria. Chest x-ray shows suspicion for early right base pneumonia In the ED given, IVF and IV Zosyn x1 Azithro x1 and tylenol Blood cultures show no growth in 24 hours, HIV negative Plan: Continue IV ceftriaxone 1 g daily along with IV azithromycin 20 to 50 mg Follow-up on urine cultures Chlamydia/Don/Trich screen pending Tylenol for fever Will monitor for diarrhea while in the hospital; and consider stool studies if present (so far 1 bowel movement charted) #Metabolic associated steatotic liver disease #Morbidly Obese #Elevated T. bili Gallbladder ultrasound shows hepatomegaly with fatty liver EKG shows sinus tachycardia without any concerning ST changes CTA abdomen pelvis shows hepatosplenomegaly, bilateral nonobstructing renal calculi. Likely secondary to obesity Plan: Counseled on dietary modifications and exercise regimen Follow-up with PCP outpatient #Microcytic anemia #Likely iron deficiency anemia #Menorrhagia, history of fibroids History of iron deficiency anemia; as seen from past smear Reticulocyte count expectedly elevated Iron panel shows: Iron of 12, TIBC 408, iron saturation 2%, ferritin 32 Plan: Discharged with iron supplementation Did not start IV iron as the patient has active infection at this time #Hyperglycemia No A1c on file On admission glucose 167 Morbidly obese A1c of 7.4 Lipid panel shows triglyceride 98, cholesterol 96, LDL 37, HDL 39 Plan: SSI Will discharge with metformin 500 mg extended release twice daily Hospital Management: Lines: PIV Diet: Carb consistent Bowel: Senna as needed GI prophylaxis: Not needed DVT prophylaxis: Heparin subcu Dispo: Observation for sepsis from UTI, on IV antibiotics Code: Full Patient seen and examined with attending Dr. Oconnor and senior resident Dr. Jeanie Cherry, PGY-1 Attending Provider Attestation/Addendum Marina London DO, attest that I was physically present for the melo portions of the service and evaluated the patient with the resident and I reviewed and discussed the case with the resident and agree with the resident's findings and plans of care as documented above Patient seen and eval this a.m. She continues to complain of fatigue and states that she has had 1 episode of diarrhea here in the hospital. Patient continued fevers overnight. Bilirubin appears to be uptrending. Patient meets sepsis criteria as per sofa score. Patient complaining of headache at this time. Will start on IV fluid hydration and continue with IV antibiotics. Will follow- up with final blood and urine cultures. Patient found to have an A1c of 7.4. Diabetic education ordered and patient will need metformin on discharge. Lungs are clear to auscultation bilaterally. Abdomen soft nontender on palpation.
[2025-03-07] MEDS: FERROUS SULF 325 MG TABLET PO (16:04)
[2025-03-07 17:56] LABS: Path Review Blood Smear Sent to Pathologist
[2025-03-08] VITALS (10 sets, daily range): BP systolic 112–142; BP diastolic 57–82; PULSE 81–97; RESP 16–18; TEMP 35.9–37.4; O2SAT 92–97
[2025-03-08 05:07] LABS: Basophils % (Auto) 0 % (0-2.5); Eosinophils # (Auto) 0.1 Thou/mm3 (0.0-0.5); Eosinophils % (Auto) 1 % (0-10); Immature Granulocytes % (Auto) 1 % (0-0); Immature Granulocytes Auto 0.06 Thou/mm3 (0.00-0.00); Lymphocytes # (Auto) 1.6 Thou/mm3 (1.0-4.8); Lymphocytes % (Auto) 17 % (10-50); Mean Corpuscular HGB Conc 26.5 g/dl (31.0-37.0); Mean Corpuscular Hemoglobin 16.4 pg (25.0-35.0); Mean Corpuscular Volume 62 fL (80-100); Monocytes # (Auto) 0.8 Thou/mm3 (0.0-0.8); Monocytes % (Auto) 8 % (0-12); Neutrophils # (Auto) 6.9 Thou/mm3 (1.8-7.7); Neutrophils % (Auto) 73 % (37-80); Nucleated Red Blood Cell # 0.03 Thou/mm3 (0.00-0.00); Nucleated Red Blood Cell % 0 /100 WBC (0); Platelet Count 324 Thou/mm3 (140-440); RDW Standard Deviation 43.6 fL (36.4-46.3); Red Blood Count 4.22 Miln/mm3 (4.00-5.20); White Blood Count 9.4 Thou/mm3 (3.6-11.0)
[2025-03-08 05:13] LABS: Hemoglobin 6.9 g/dL (12.0-16.0)
--- NOTE | 2025-03-08 05:49 | PC.NURSE ---
called Dr. Greenberg regarding patient's critical lab of hgb 6.9, hct 26.
[2025-03-08 06:18] LABS: Alanine Aminotransferase 25 U/L (10-49); Albumin, Serum 3.7 gm/dL (3.5-5.0); Albumin/Globulin Ratio 1.3 (1.2-2.2); Alkaline Phosphatase 66 U/L (46-116); Anion Gap 11 (7-16); Aspartate Amino Transferase 31 U/L (0-34); BUN/Creatinine Ratio 10 Ratio (12-20); Bilirubin,Total 0.8 mg/dL (0.3-1.2); Blood Urea Nitrogen < 5 mg/dL (9-23); Calcium (Corrected) 8.2 mg/dL (8.5-10.1); Carbon Dioxide 23.6 mMol/L (20.0-31.0); Chloride 103 mMol/L (98-107); Creatinine (Component) 0.5 mg/dL (0.6-1.3); Globulin 2.9 gm/dL (2.3-3.5); Glucose 150 mg/dL (74-106); Osmolality,Calculated 275 (275-295); Potassium 3.4 mMol/L (3.4-5.1); Sodium 138 mMol/L (136-145); Total Protein 6.6 gm/dL (5.7-8.2); eGFR > 60 See Note
[2025-03-08 06:20] LABS: Hematocrit 25.1 % (36.0-46.0)
[2025-03-08 06:25] LABS: Hemoglobin 7.1 g/dL (12.0-16.0)
[2025-03-08] MEDS: INSULIN LISPRO (AdmeLOG) 1 UNIT/0.01 ML UNIT SC ×3 (07:47→20:52)
[2025-03-08] MEDS: ACETAMINOPHEN 500 MG TABLET 1000 MG PO (07:48)
[2025-03-08] MEDS: ONDANSETRON INJ 2 MG/ML INJ 2 ML 4 MG IVP (07:48)
[2025-03-08] MEDS: CALCIUM CARBONATE 600 MG TABLET PO (08:30)
[2025-03-08] MEDS: cefTRIAXone/D5w 1gm IV premix 1 GM/50 ML BAG IV (08:30)
[2025-03-08] MEDS: VIT B12/Vit C/FA (Nephrovite) TABLET 1 TAB PO (08:30)
[2025-03-08] MEDS: AZITHROMYCIN INJ 250 MG in SODIUM CHLORIDE 0.9% 250 ML 250 ML IV (10:30)
[2025-03-08] MEDS: LACTOBACILLUS RHAMNOSUS 1 CAP PO ×2 (11:39→20:53)
--- NOTE | 2025-03-08 13:14 | ESPR_ITS ---
<Statement entered by Joby Ware MD - 03/08/25 17:18> Patient examined and case discussed with the team including attending physician. Note reviewed, I agree with the care plan as documented. Ms Greco is a 44-year-old female admitted for acute urinary tract infection intially and started on IV antibiotics. Chest x-ray shows suspicion for early right base pneumonia. ED suspected possible aspiration and gave Zosyn 4.5 x1 and Azithro x1. Patient is now meeting sepsis, SIRS with end organ damage. WBC of 19.8 today. Blood cultures show no growth in 24 hours, HIV negative. Labs show elevated T Bili, f/u Gallbladder ultrasound shows hepatomegaly with fatty liver. CTA abdomen pelvis shows hepatosplenomegaly, bilateral nonobstructing renal calculi. 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 03/08 Urine cultures positive for GPC but only 20,000 colonies; pending speciation. FOBT ordered for downtrending Hb 6.9-7.2 over last 24 hours. Plan: Continue IV antibiotics. Follow-up on Chlamydia/Don/Trich screen. Discontinue Heparin SC, switched to SCDs only. Please refer to the note below for further details. - Joby Ware MD, PGY 2 Disclaimer: The document may contain phonetic/typographic errors due to voice recognition software. These errors are purely due to imperfections in the software program. Documentation for date of: 03/08/25 Subjective Subjective Interval history: 03/08/2025: No acute overnight events to report. Patient seen and examined in hospital bed reporting improvement in presenting symptoms; however, continues to have persistent abdominal discomfort but denies having any diarrhea. Patient's hemoglobin was 6.9 overnight and on repeat was 7.1; moreover, 1 unit PRBC transfused. Patient's urine cultures are positive for GPC but only 20,000 colonies noted. Will continue IV antibiotic regimen covering for both UTI and pneumonia. Abdominal discomfort likely secondary to gastroenteritis. Exam Vital Signs Temp Pulse Resp BP Pulse Ox O2 Del Method 96.6 F L 91 18 131/78 H 92 L Room Air 03/08/25 13:04 03/08/25 13:04 03/08/25 13:04 03/08/25 13:04 03/08/25 13:03/08/25 12:00 Narrative Exam Physical Exam: GENERAL: Awake, answering questions appropriately in [place]ian, appears stated age HEENT: NC/AT. Moist mucosa. PERRLA/EOMI. CARDIO: Heart RRR, no obvious murmurs, no JVD. PULM: No coughing or visible SOB. Lungs CTA B/L. GI: Abdomen soft, mildly tender to palpation diffusely, nondistended, no guarding or rebound tenderness, +BS. SKIN/MSK/EXT: No wounds/discoloration/rashes/edema/amputations. +Pedal pulses present B/L. NEURO: Oriented x3, Moves extremities x4, no focal neurologic deficits noted Objective Labs 03/08/25 05:55 03/08/25 04:00 Labs: Laboratory Results - last 24 hr 03/07/25 03/08/25 03/08/25 04:26 04:00 05:55 WBC 9.4 D RBC 4.22 Hgb 6.9 L* 7.1 L Hct 26.0 L 25.1 L MCV 62 L MCH 16.4 L MCHC 26.5 L RDW Std Deviation 43.6 Plt Count 324 Neut % (Auto) 73 Lymph % (Auto) 17 [place] % (Auto) 8 Eos % (Auto) 1 Baso % (Auto) 0 Neut # (Auto) 6.9 Lymph # (Auto) 1.6 [place] # (Auto) 0.8 Eos # (Auto) 0.1 Baso # (Auto) 0.0 Immature Gran # (Auto) 0.06 H Absolute Nucleated RBC 0.03 H Immature Gran % 1 H Nucleated RBC % 0 Smear Path Review Sent to Pathologist Sodium 138 Potassium 3.4 Chloride 103 Carbon Dioxide 23.6 Anion Gap 11 BUN < 5 L Creatinine 0.5 L Estim Creat Clear Calc 188.0 eGFR > 60 BUN/Creatinine Ratio 10 L Glucose 150 H Calculated Osmolality 275 Calcium 8.0 L Corrected Calcium 8.2 L Total Bilirubin 0.8 D AST 31 ALT 25 Alkaline Phosphatase 66 Total Protein 6.6 Albumin 3.7 Globulin 2.9 Albumin/Globulin Ratio 1.3 Blood Type O Positive Antibody Screen NEGATIVE Crossmatch See Detail Blood Bank Wristband ID Yes Quality Measures Quality Measures none Assessment & Plan Assessment Current Active Medications: Generic Name Dose Route Start Last Admin Trade Name Freq PRN Reason Stop Dose Admin Acetaminophen 1,000 mg 03/08/25 07:44 03/08/25 07:48 Acetaminophen 500 Mg Tablet PO 04/07/25 00:15 1,000 mg Q6HR PRN Administration Pain Or Fever > 99.9 Dextrose 25 ml 03/06/25 18:11 Dextrose 50%-Water Inj 50 Ml Syringe IV 04/05/25 18:10 Q15MIN PRN BG 50-70 responsive npo pt Dextrose 50 ml 03/06/25 18:11 Dextrose 50%-Water Inj 50 Ml Syringe IV 04/05/25 18:10 Q15MIN PRN BG <50 OR BG <70 & pt unresponsive Ferrous Sulfate 325 mg 03/07/25 15:00 03/07/25 16:04 Ferrous Sulf 325 Mg Tablet PO 04/06/25 14:59 325 mg QOD LINDA Administration Glucagon 1 mg 03/06/25 18:11 Glucagon Inj 1 Mg Vial IM Q15MIN PRN BG <70, and no IV access Ceftriaxone Sodium/Dextrose 1 gm in 50 mls @ 100 mls/hr 03/07/25 09:00 03/08/25 08:30 Rocephin/D5w 1gm Iv Premix IV 03/14/25 08:59 100 mls/hr QDAY LINDA Administration Azithromycin 250 mg/ Sodium 250 mls @ 250 mls/hr 03/07/25 09:00 03/08/25 10:30 Chloride IV 03/11/25 08:59 250 mls/hr QDAY LINDA Administration Insulin Human Lispro 0 unit 03/06/25 21:00 03/08/25 11:37 Insulin Lispro (Admelog) 1 Unit/0.01 Ml Unit SC 04/05/25 20:59 Not Given ACHS LINDA Protocol Lactobacillus Rhamnosus 1 cap 03/08/25 11:00 03/08/25 11:39 Lactobacillus Rhamnosus 1 Cap PO 04/07/25 10:59 1 cap BID LINDA Administration Ondansetron HCl 4 mg 03/06/25 18:11 03/08/25 07:48 Ondansetron Inj 2 Mg/Ml Inj 2 Ml IVP 04/05/25 18:10 4 mg Q6H PRN Administration NAUSEA OR VOMITING Protocol Sennosides 1 tab 03/06/25 18:11 Senna Tablet PO 04/05/25 18:10 QDAY PRN constipation Protocol Vitamin B Complex/Vit C/Folic Acid 1 tab 03/08/25 09:00 03/08/25 08:30 Vit B12/Vit C/Fa (Nephrovite) Tablet PO 04/07/25 08:59 1 tab QDAY LINDA Administration Plan 44-year-old female with past medical history of anemia, cholecystectomy presenting to the ED on 03/06 with episode of vomiting and diarrhea will be admitted for observation for urinary tract infection and started on IV antibiotics. #Sepsis secondary to UTI #Pneumonia? #Leukocytosis, downtrending #Gastroenteritis Patient presented to the ED with episodes of urinary symptoms, nausea/vomiting and diarrhea As per HPI above, patient has not been seen by a medical provider since urinary symptom onset about 1 month ago Patient experienced nausea/vomiting and diarrhea for 1 day but otherwise did not have those symptoms Denies using any antibiotics recently, sick contacts, sexual activity only with spouse without protection, no melena/hematochezia/hematemesis SIRS criteria with tachycardia 130, respiratory rate of 24, febrile 103 ?F with mild hypertension 136/73 but satting 96 on room air. Has elevated Tbili - end organ dysfunction Pertinent lab findings include WBC of 19.8, hemoglobin 8.2 with MCV of 60, creatinine 0.6, BUN 10, T. bili 1.8, Pro-Jordon 0.35. Urinalysis shows +1 ketones, pyuria and rare bacteria. Chest x-ray shows suspicion for early right base pneumonia In the ED given, IVF and IV Zosyn x1 Azithro x1 and tylenol Blood cultures show no growth in 24 hours, HIV negative Plan: Continue IV ceftriaxone 1 g daily along with IV azithromycin 20 to 50 mg Urine cultures positive for GPC but only 20,000 colonies; pending speciation Chlamydia/Don/Trich screen pending Tylenol for fever No stool studies as the patient is not having active diarrhea in the hospital #Metabolic associated steatotic liver disease #Morbidly Obese #Elevated T. bili Gallbladder ultrasound shows hepatomegaly with fatty liver EKG shows sinus tachycardia without any concerning ST changes CTA abdomen pelvis shows hepatosplenomegaly, bilateral nonobstructing renal calculi. Likely secondary to obesity Plan: Counseled on dietary modifications and exercise regimen Follow-up with PCP outpatient #Microcytic anemia #Likely iron deficiency anemia #Menorrhagia, history of fibroids History of iron deficiency anemia; as seen from past smear Reticulocyte count expectedly elevated Iron panel shows: Iron of 12, TIBC 408, iron saturation 2%, ferritin 32 Plan: Discharged with iron supplementation Did not start IV iron as the patient has active infection at this time #Hyperglycemia No A1c on file On admission glucose 167 Morbidly obese A1c of 7.4 Lipid panel shows triglyceride 98, cholesterol 96, LDL 37, HDL 39 Plan: SSI Will discharge with metformin 500 mg extended release twice daily Hospital Management: Lines: PIV Diet: Carb consistent Bowel: Senna as needed GI prophylaxis: Not needed DVT prophylaxis: Heparin subcu Dispo: Observation for sepsis from UTI, on IV antibiotics Code: Full Patient seen and examined with attending Dr. Hogan and senior resident Dr. Jeanie Cherry, PGY-1 Attending Provider Attestation/Addendum I attest that I was physically present for the evaluation, physical examination, lab and imaging review of the patient with the residents. I discussed the case with the residents and agree with the findings and plans of care as documented above. At bedside today, patient states she is feeling better compared to yesterday. Continues to have mild abdominal discomfort but denied any more diarrheal episode. Has not have any fever in last 24 hours. Rest of the vitals were stable as well. Blood cultures have been negative for 48 hours. Urine culture grew GPC but only has 20-30,000 colonies. Potassium low. Liver panel has improved. Hemoglobin noted to be 6.9 this morning, ordered 1 unit of PRBC. No obvious source of active bleeding. Occult blood has been ordered. Continues to be on oral ferrous sulfate for iron deficiency. Continues to be on azithromycin and Rocephin as infection source still remains obscure between pneumonia, gastroenteritis or UTI. If hemoglobin remains stable tomorrow and occult blood is negative, we will plan for discharge. Gerson Hogan MD
[2025-03-08 19:02] LABS: Hematocrit 30.6 % (36.0-46.0)
[2025-03-08 19:04] LABS: Hemoglobin 8.5 g/dL (12.0-16.0)
[2025-03-09] VITALS: BP 126/78; PULSE 84; RESP 16; TEMP 36.7; O2SAT 95
[2025-03-09 04:00] VITALS: BP 142/79; PULSE 87; RESP 16; TEMP 36.2; O2SAT 96
[2025-03-09] MEDS: ACETAMINOPHEN 500 MG TABLET 1000 MG PO (04:34)
[2025-03-09 05:29] LABS: Basophils % (Auto) 0 % (0-2.5); Eosinophils # (Auto) 0.2 Thou/mm3 (0.0-0.5); Eosinophils % (Auto) 2 % (0-10); Hematocrit 28.8 % (36.0-46.0); Immature Granulocytes % (Auto) 1 % (0-0); Immature Granulocytes Auto 0.06 Thou/mm3 (0.00-0.00); Lymphocytes # (Auto) 2.1 Thou/mm3 (1.0-4.8); Lymphocytes % (Auto) 23 % (10-50); Mean Corpuscular HGB Conc 28.8 g/dl (31.0-37.0); Mean Corpuscular Hemoglobin 17.8 pg (25.0-35.0); Mean Corpuscular Volume 62 fL (80-100); Monocytes # (Auto) 0.6 Thou/mm3 (0.0-0.8); Monocytes % (Auto) 7 % (0-12); Neutrophils % (Auto) 66 % (37-80); Nucleated Red Blood Cell # 0.04 Thou/mm3 (0.00-0.00); Nucleated Red Blood Cell % 0 /100 WBC (0); Platelet Count 349 Thou/mm3 (140-440); RDW Standard Deviation 46.4 fL (36.4-46.3); Red Blood Count 4.67 Miln/mm3 (4.00-5.20)
[2025-03-09 05:32] LABS: Hemoglobin 8.3 g/dL (12.0-16.0)
[2025-03-09 05:56] LABS: Alanine Aminotransferase 26 U/L (10-49); Albumin, Serum 3.9 gm/dL (3.5-5.0); Albumin/Globulin Ratio 1.3 (1.2-2.2); Alkaline Phosphatase 65 U/L (46-116); Anion Gap 11 (7-16); Aspartate Amino Transferase 33 U/L (0-34); BUN/Creatinine Ratio 12 Ratio (12-20); Bilirubin,Total 0.6 mg/dL (0.3-1.2); Blood Urea Nitrogen 6 mg/dL (9-23); Calcium 8.2 mg/dL (8.3-10.6); Calcium (Corrected) 8.3 mg/dL (8.5-10.1); Carbon Dioxide 25.9 mMol/L (20.0-31.0); Chloride 106 mMol/L (98-107); Creatinine (Component) 0.5 mg/dL (0.6-1.3); Globulin 2.9 gm/dL (2.3-3.5); Glucose 121 mg/dL (74-106); Osmolality,Calculated 283 (275-295); Potassium 3.5 mMol/L (3.4-5.1); Sodium 143 mMol/L (136-145); Total Protein 6.8 gm/dL (5.7-8.2); eGFR > 60 See Note
[2025-03-09 08:00] VITALS: BP 136/79; PULSE 80; RESP 16; TEMP 36.1; O2SAT 95
[2025-03-09] MEDS: VIT B12/Vit C/FA (Nephrovite) TABLET 1 TAB PO (08:32)
[2025-03-09] MEDS: INSULIN LISPRO (AdmeLOG) 1 UNIT/0.01 ML UNIT SC (08:33)
[2025-03-09] MEDS: FERROUS SULF 325 MG TABLET PO (08:33)
[2025-03-09] MEDS: AZITHROMYCIN 250 MG TABLET PO (08:33)
[2025-03-09] MEDS: LACTOBACILLUS RHAMNOSUS 1 CAP PO (08:33)
[2025-03-09] MEDS: cefTRIAXone/D5w 1gm IV premix 1 GM/50 ML BAG IV (08:33)
[2025-03-09] MEDS: CALCIUM CARBONATE 600 MG TABLET PO (08:35)
--- NOTE | 2025-03-09 10:02 | PD.RESDS ---
Planned Discharge Date 03/09/25 DS: Providers Provider Date of admission: 03/07/25 10:38 Primary care physician: Harry Gonzalez MD Admitting Provider: Marina Oconnor DO Attending Provider on Admission: Marina Oconnor DO Consults: 03/06/25 21:19 Referral Registered Dietitian Routine Comment: Referral Respiratory Therapy Routine Comment: Attending Provider on DC: Easton Cherry MD Discharging Provider: Easton Cherry MD DS: Diagnosis Problem List Completed Was Problem List Reviewed/Reconciled?: Yes Hospital Course Hospital Course Hospital course: 44-year-old female with past medical history of anemia, cholecystectomy, menorrhagia secondary to fibroids presented to the ED on 03/06 with episodes of vomiting and diarrhea. In the ED patient presented with SIRS criteria with tachycardia, respiratory rate elevated and febrile 103 ?F with mild hypertension but saturating well on room air. Pertinent lab findings included WBC of 19.8, hemoglobin 8.2 with MCV of 60 and T. bili of 1.8. Urinalysis showed pyuria and rare bacteria. Chest x-ray showed suspicion for early right base pneumonia, gallbladder ultrasound showed hepatomegaly with fatty liver. EKG showed sinus tachycardia without any concerning ST changes and CT of the abdomen pelvis showed hepatosplenomegaly, bilateral nonobstructing renal calculi. Patient was admitted for sepsis of multifocal source including pneumonia, urinary tract infection and gastroenteritis. Patient was started on IV antibiotics and symptomatically improved throughout hospitalization. During hospitalization, patient was found to have newly diagnosed type 2 diabetes with A1c of 7.4. Patient will be discharged with the following strict instructions. Please take amoxicillin?clavulanate 500-125 mg tablet twice a day for 7 days for urinary tract infection Please take azithromycin 250 mg tablet once a day for 3 additional days for pneumonia Please take metformin 500 mg ER by mouth twice a day for newly diagnosed type 2 diabetes Please take ferric citrate (iron supplements) 2010 mg by mouth once a day for iron deficiency anemia Please follow-up with your PCP within 1 to 2 weeks after discharge, you have MASLD (high lipid amount in your liver) and nonobstructing renal calculi noted on imaging If your symptoms worsen or if you develop new chest pain, shortness of breath, dizziness, bleeding - please come back to the ED immediately Hospital Diagnosis: #Sepsis secondary to unspecified source versus multifocal source #Urinary tract infection #Community-acquired pneumonia #Gastroenteritis #Metabolic associated steatotic liver disease #Morbidly Obese #Microcytic anemia #Likely iron deficiency anemia #Menorrhagia, history of fibroids #Newly diagnosed type 2 diabetes Easton Cherry DO PGY-1 Internal Medicine - [facility] Status at Discharge Overall status at discharge: patient is progressing back to baseline Time Spent with Patient Time attestation: Total time spent providing and/or coordinating discharge services: 29 minutes Time spent: Less than 30 minutes Exam Vital Signs Temp Pulse Resp BP Pulse Ox O2 Del Method 97.0 F 80 16 136/79 H 95 Room Air 03/09/25 08:00 03/09/25 08:00 03/09/25 08:00 03/09/25 08:00 03/09/25 08:00 03/09/25 08:00 Narrative Exam Physical Exam: GENERAL: Awake, answering questions appropriately in [place]an, appears stated age HEENT: NC/AT. Moist mucosa. PERRLA/EOMI. CARDIO: Heart RRR, no obvious murmurs, no JVD. PULM: No coughing or visible SOB. Lungs CTA B/L. GI: Abdomen soft, nontender, nondistended, no guarding or rebound tenderness, +BS. SKIN/MSK/EXT: No wounds/discoloration/rashes/edema/amputations. +Pedal pulses present B/L. NEURO: Oriented x3, Moves extremities x4, no focal neurologic deficits noted Discharge Plan Plan Patient Disposition: HOME (Self Care) Patient condition on transfer: Stable Care Plan Goals: Please take amoxicillin?clavulanate 500-125 mg tablet twice a day for 7 days for urinary tract infection Please take azithromycin 250 mg tablet once a day for 3 additional days for pneumonia Please take metformin 500 mg ER by mouth twice a day for newly diagnosed type 2 diabetes Please take ferric citrate (iron supplements) 2010 mg by mouth once a day for iron deficiency anemia Please follow-up with your PCP within 1 to 2 weeks after discharge, you have MASLD (high lipid amount in your liver) and nonobstructing renal calculi noted on imaging If your symptoms worsen or if you develop new chest pain, shortness of breath, dizziness, bleeding - please come back to the ED immediately Prescriptions/Referrals Prescriptions/Med Rec: New metformin 500 mg tablet extended release 24 hr 500 mg PO BID 30 Days Qty: 60 0RF ferric citrate 210 mg iron tablet 210 mg PO QDAY 30 Days Qty: 30 0RF Rx Instructions: administer with a meal amoxicillin-pot clavulanate 500-125 mg tablet 1 tab PO BID 7 Days Qty: 14 0RF azithromycin 250 mg tablet 250 mg PO QDAY 3 Days Qty: 3 0RF Rx Instructions: start on day 2 of therapy No Action ibuprofen 600 MG tablet 600 mg PO Q8HR PRN (Reason: PAIN) Qty: 30 0RF Referrals: Harry Gonzalez MD [Primary Care Provider] - Patient/Caregiver Discharge Instructions Education Materials: Urinary Tract Infections in Women, Diabetes Exercise Plan, Diabetes Carbs Fats Protein Print Language: [place] Stand Alone Forms: [employer] Info., Patient Portal Info Letter Discharge Order Discharge Orders: Discharge (Routine); Ordered 03/09/25 Ordered By: Easton Cherry Quality Discharge Quality Measures VTE prophylaxis Attestestation MD Attestation I attest that I was physically present for the evaluation, physical examination, lab and imaging review of the patient with the residents. I discussed the case with the residents and agree with the findings and plans of care as documented above. Gerson Hogan MD
== END 2025-03-09 10:45 | disposition home or self-care (01) | DRG 720 ==
LOC: SERX 17:50 → SERHOLD 18:58 → S3SX 03-07 06:20 → SERHOLD 03-07 06:21 → S3SX 03-07 06:22 → SERHOLD 03-07 06:22
PROVIDERS: Nurse Practitioner Family; Student in an Organized Health Care Education/Training Program; Admitting Provider Internal Medicine; Emergency Provider Emergency Medicine; PCP Family Medicine; Visit Provider Internal Medicine
DX: A41.9 Sepsis, unspecified organism (principal); N39.0 Urinary tract infection, site not specified; R16.0 Hepatomegaly, not elsewhere classified; K76.0 Fatty (change of) liver, not elsewhere classified; E66.01 Morbid (severe) obesity due to excess calories; Z68.42 Body mass index [BMI] 45.0-49.9, adult; D50.9 Iron deficiency anemia, unspecified; E11.65 Type 2 diabetes mellitus with hyperglycemia; I10 Essential (primary) hypertension; J18.9 Pneumonia, unspecified organism; N92.0 Excessive and frequent menstruation with regular cycle; K52.9 Noninfective gastroenteritis and colitis, unspecified; N20.0 Calculus of kidney; Z79.84 Long term (current) use of oral hypoglycemic drugs; Z87.442 Personal history of urinary calculi; Z90.49 Acquired absence of other specified parts of digestive tract
CPT/HCPCS: 36415; 71046; 74176; 76705; 80053; 80061; 81001; 82248; 82728; 83036; 83540; 83550; 83605; 83615; 83735; 84100; 84145; 84703; 85014; 85018; 85025; 85046; 86703; 86850; 86900; 86901; 86923; 87040; 87086; 87400; 87491; 87591; 87661; 87811; 93005; 94762; 96361; 96365; 96366; 96367; 99285; G0378; J0456; J0696; J1644; J1815; J2405; J2543; J3475; J7030; J7050; J7120; P9016; A9270